=== PATIENT | female | born 1980 | race African-American/Black ===

== ENCOUNTER 2018-11-30 09:20 | Emergency (ER) | payer OTHER ==
[2018-11-30] MEDS ORDERED: Bupivacaine 0.25% 10 ML VIAL ONE (10:31)
[2018-11-30] MEDS ORDERED: Ketorolac Tromethamine 30 MG/ML VIAL ONE (10:41)
== END 2018-11-30 11:00 | disposition home or self-care (01) ==
LOC: ERS 09:20
DX: K03.81 Cracked tooth (principal); K02.9 Dental caries, unspecified; F17.210 Nicotine dependence, cigarettes, uncomplicated
CPT/HCPCS: 64400; J1885; S0020

== ENCOUNTER 2019-11-07 10:46 | Emergency (ER) | payer OTHER, SELFPAY ==
[2019-11-07] MEDS ORDERED: HYDROcodone/Acetaminophen 5/325 mg Tablet ONE (11:06)
[2019-11-07] MEDS ORDERED: Ketorolac Tromethamine 30 MG/ML VIAL ONE (11:07)
== END 2019-11-07 12:01 | disposition home or self-care (01) ==
LOC: ERS 10:46
DX: K02.9 Dental caries, unspecified (principal); F17.210 Nicotine dependence, cigarettes, uncomplicated
CPT/HCPCS: 96372; 99282; J1885

== ENCOUNTER 2023-01-01 11:59 | Emergency (ER) | payer SELFPAY | END 2023-01-01 13:05 | disposition home or self-care (01) | LOC: ERS 11:59 | DX: R05.9 Cough, unspecified (principal); F17.210 Nicotine dependence, cigarettes, uncomplicated; Z20.822 Contact with and (suspected) exposure to COVID-19 | CPT/HCPCS: 87635; 99283 ==